=== PATIENT | male | born 1970 | race Caucasian/White ===

== ENCOUNTER 2021-10-10 09:27 | Day surgery (SDC) | payer OTHER ==
[~2021-10-10] VITALS: Ht 162.6 cm; Wt 74.8 kg
[2021-10-10] MEDS ORDERED: MIDAZOLAM 5 MG/5 ML VIAL ONE (12:46)
[2021-10-10] MEDS ORDERED: fentaNYL citrate 0.05 MG/ML VIAL ONE (12:46)
[2021-10-10] MEDS ORDERED: LIDOCAINE 2% 100 MG/5 ML UJET TP ONE (12:46)
== END 2021-10-10 14:00 | disposition home or self-care (01) ==
LOC: MDS 09:27 → MMU 10:57 → MDS 14:00
PROVIDERS: ATTEND Internal Medicine Gastroenterology
DX: Z12.11 Encounter for screening for malignant neoplasm of colon (principal); K57.30 Diverticulosis of large intestine without perforation or abscess without bleeding; E11.9 Type 2 diabetes mellitus without complications; Z80.0 Family history of malignant neoplasm of digestive organs; Z79.899 Other long term (current) drug therapy; Z20.822 Contact with and (suspected) exposure to COVID-19
CPT/HCPCS: 45378; 87426; J3010; J7030; J2250